=== PATIENT | male | born 1985 ===

== ENCOUNTER 2022-01-18 13:36 | Emergency (ER) | payer BC ==
[~2022-01-18] VITALS: Ht 172 cm; Wt 81.0 kg
[2022-01-18 13:45] VITALS: BP 149/86
--- NOTE | 2022-01-18 14:27 | ED Integumentary General ---
General Chief Complaint: Skin/Wound Problems Stated Complaint: FEVER/CRAMPS/GENITAL LUMP Nursing Triage Note: ARRIVED VIA AMB TO ROOM 07 WITH COMPLAINTS OF FEVER, ABD CRAMPS, AND A RECTAL ABSCESS X3 DAYS Source: patient Exam Limitations: no limitations History of Present Illness Date Seen by Provider: Jan 18, 2022 Time Seen by Provider: 13:45 Initial Comments 36-year-old male with no significant past medical history coming in due to per ineal pain, swelling, and fever. Started around 3 days ago. Has never had anything like this happen before. Has never had any procedures for abscess drainage in his perineal region. Took ibuprofen earlier today which helped somewhat. He says he has had some darker stools, but no bright red blood. Does not take any blood thinners. Has been taking ibuprofen for the past 3 days, prior to that has not taken a lot of NSAIDs. No history of liver disease. Is otherwise denying any chest pain, shortness of breath, nausea, vomiting, diarrhea, weakness, numbness, or any other concerns. Allergies and Home Medications Allergies Coded Allergies: No Known Drug Allergies (Unverified , 01/18/22) Patient Home Medication List Home Medication List Reviewed: Yes Ciprofloxacin HCl (Ciprofloxacin HCl) 500 Mg Tablet, 500 MG PO BID Prescribed by: YASEMIN LECHUGA on 01/18/22 161 Ibuprofen (Ibuprofen) 800 Mg Tablet, 800 MG PO Q8H PRN for PAIN Prescribed by: YASEMIN LECHUGA on 01/18/22 161 Metronidazole (Metronidazole) 500 Mg Tablet, 500 MG PO Q8H Prescribed by: YASEMIN LECHUGA on 01/18/22 1619 Review of Systems Review of Systems Constitutional: fever EENTM: No blurred vision Respiratory: No cough Cardiovascular: No chest pain Gastrointestinal: No abdominal pain Genitourinary: other (perineum pain) Musculoskeletal: no symptoms reported Skin: other (abscess) Psychiatric/Neurological: No Symptoms Reported Endocrine: No Symptoms Reported Hematologic/Lymphatic: No Symptoms Reported All Other Systems Reviewed Negative Unless Noted: Yes Past Ensqrdo-Dtqcad-Nvlwqj Hx Patient Social History Smoking Status: Current Everyday Smoker Substance use?: No Alcohol Use?: No Immunizations Up To Date COVID19 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 Past Medical History Surgeries: No Physical Exam Vital Signs Vital Signs - First Documented 01/18/22 13:45 Temp 36.6 Pulse 95 Resp 16 B/P (MAP) 149/86 (107) Pulse Ox 98 O2 Delivery Room Air Capillary Refill : Less Than 3 Seconds General Appearance: WD/WN, no apparent distress HEENT: PERRL/EOMI, normal ENT inspection, pharynx normal Neck: non-tender, full range of motion, supple, normal inspection Cardiovascular: regular rate, rhythm, no edema, no murmur Respiratory: chest non-tender, lungs clear, normal breath sounds, no respiratory distress, no accessory muscle use Gastrointestinal: normal bowel sounds, non tender, soft; No distended, No guarding, No rebound Back: normal inspection, no CVA tenderness Extremities: normal range of motion, non-tender, normal inspection, no pedal edema, no calf tenderness Neurologic/Psychiatric: no motor/sensory deficits, alert, normal mood/affect Skin: normal color, warm/dry, other (area of fluctuance with abscess in the mid perineum, tender to touch, mild erythema surrounding it, no pain on digital rectal exam, brown stool without melena) Lymphatic: no adenopathy Procedures/Interventions I&D : Site: perineum Blade Size: 11 I & D Procedure: betadine prep Progress Lidocaine with epinephrine used for anesthesia after it was cleaned. Single stab incision used with moderate amount of purulent drainage. Patient tolerated procedure well Progress/Results/Core Measures Results/Orders Lab Results Laboratory Tests Test 01/18/22 14:35 Range/Units White Blood Count 9.7 4.3-11.0 10^3/uL Red Blood Count 5.05 4.30-5.52 10^6/uL Hemoglobin 15.5 13.3-17.7 g/dL Hematocrit 45 40-54 % Mean Corpuscular Volume 89 80-99 fL Mean Corpuscular Hemoglobin 31 25-34 pg Mean Corpuscular Hemoglobin Concent 35 32-36 g/dL Red Cell Distribution Width 13.3 10.0-14.5 % Platelet Count 153 130-400 10^3/uL Mean Platelet Volume 10.5 9.0-12.2 fL Immature Granulocyte % (Auto) 0 % Neutrophils (%) (Auto) 75 42-75 % Lymphocytes (%) (Auto) 16 12-44 % Monocytes (%) (Auto) 9 0-12 % Eosinophils (%) (Auto) 0 0-10 % Basophils (%) (Auto) 0 0-10 % Neutrophils # (Auto) 7.2 1.8-7.8 10^3/uL Lymphocytes # (Auto) 1.6 1.0-4.0 10^3/uL Monocytes # (Auto) 0.8 0.0-1.0 10^3/uL Eosinophils # (Auto) 0.0 0.0-0.3 10^3/uL Basophils # (Auto) 0.0 0.0-0.1 10^3/uL Immature Granulocyte # (Auto) 0.0 0.0-0.1 10^3/uL Prothrombin Time 13.9 12.2-14.7 SEC INR Comment 1.0 0.8-1.4 Activated Partial Thromboplast Time 32 24-35 SEC Sodium Level 138 135-145 MMOL/L Potassium Level 3.6 3.6-5.0 MMOL/L Chloride Level 107 98-107 MMOL/L Carbon Dioxide Level 20 L 21-32 MMOL/L Anion Gap 11 5-14 MMOL/L Blood Urea Nitrogen 11 7-18 MG/DL Creatinine 0.98 0.60-1.30 MG/DL Estimat Glomerular Filtration Rate 101 BUN/Creatinine Ratio 11 Glucose Level 105 70-105 MG/DL Calcium Level 8.6 8.5-10.1 MG/DL Corrected Calcium 8.8 8.5-10.1 MG/DL Total Bilirubin 0.4 0.1-1.0 MG/DL Aspartate Amino Transf (AST/SGOT) 28 5-34 U/L Alanine Aminotransferase (ALT/SGPT) 19 0-55 U/L Alkaline Phosphatase 72 40-136 U/L C-Reactive Protein High Sensitivity 5.23 H 0.00-0.50 MG/DL Total Protein 6.3 L 6.4-8.2 GM/DL Albumin 3.8 3.2-4.5 GM/DL My Orders Orders - YASEMIN LECHUGA MD Cbc With Automated Diff (01/18/22 14:19) Comprehensive Metabolic Panel (01/18/22 14:19) Hs C Reactive Protein (01/18/22 14:19) Protime With Inr (01/18/22 14:19) Partial Thromboplastin Time (01/18/22 14:19) Ct Abdomen/Pelvis W (01/18/22 14:19) Ed Iv/Invasive Line Start (01/18/22 14:19) Ketorolac Injection (Toradol Injection) (01/18/22 14:45) Iohexol Injection (Omnipaque 350 Mg/Ml 1 (01/18/22 14:45) Ns (Ivpb) (Sodium Chloride 0.9% Ivpb Bag (01/18/22 14:45) Ciprofloxacin Tablet (Cipro Tablet) (01/18/22 16:21) Metronidazole Tablet (Flagyl Tablet) (01/18/22 16:21) Medications Given in ED Current Medications Medications Dose Ordered Sig/Jamee Route Start Time Stop Time Status Last Admin Dose Admin Iohexol 100 ml ONCE ONCE IV 01/18/22 14:45 01/18/22 14:46 DC 01/18/22 15:13 100 ML Ketorolac Tromethamine 15 mg ONCE ONCE IVP 01/18/22 14:45 01/18/22 14:46 DC 01/18/22 14:44 15 MG Sodium Chloride 100 ml ONCE ONCE IV 01/18/22 14:45 01/18/22 14:46 DC 01/18/22 15:13 80 ML Vital Signs/I&O 01/18/22 13:45 Temp 36.6 Pulse 95 Resp 16 B/P (MAP) 149/86 (107) Pulse Ox 98 O2 Delivery Room Air Blood Pressure Mean: 107 Progress Progress Note : Progress Note 36-year-old male with above history coming in due to an abscess in his perineum region. ABCs were intact and vitals were stable on presentation. Physical exam with the after mentioned abscess in the area. No rectal pain on digital rectal exam. He also is not having any bloody stools despite mentioning having dark stools previously. Hemoglobin is normal, labs otherwise unremarkable. CT with no anorectal abscess seen. He does have signs of colitis. We will treat him with antibiotics due to this. I will have him follow-up with one of our surgeons since there is a possibility for recurrence. He was then discharged home in stable condition with strict return precautions. Diagnostic Imaging Diagonstic Imaging: CT Plain Films/CT/US/NM/MRI: abdomen Comments [facility]. [place], [place] NAME: BRYAN RODRÍGUEZ JR [facility] REC#: [id number] PT STATUS: REG ER : 1985 PHYSICIAN: YASEMIN LECHUGA MD ADMIT DATE: 01/18/22/ER Draft Date of Exam:01/18/22 CT ABDOMEN/PELVIS W PROCEDURE: CT abdomen and pelvis with contrast. TECHNIQUE: Multiple contiguous axial images were obtained through the abdomen and pelvis after administration of intravenous contrast. Auto Exposure Controls were utilized during the CT exam to meet ALARA standards for radiation dose reduction. All CT scans use one or more of the following dose optimizing techniques: automated exposure control, MA and/or KvP adjustment based on patient size and exam type or iterative reconstruction. INDICATION: 36-year-old male, fever, abdominal cramps, rectal abscess x 3 days. CORRELATION STUDY: None. FINDINGS: LOWER THORAX: Clear. LIVER: Tiny low attenuating region fatty dome favors probable cyst. GALLBLADDER: Present and unremarkable. No bile duct dilatation. SPLEEN: Calcified granulomas, otherwise unremarkable. PANCREAS: Unremarkable. ADRENAL GLANDS: Unremarkable. KIDNEYS: Normal configuration. No calcification or obstruction. ABDOMINAL AORTA: Unremarkable, nonaneurysmal. GASTROINTESTINAL TRACT: Stomach is mildly distended with fluid and retained gastric contents. No small bowel obstruction. There is a small amount of fluid within the proximal colon. No evidence for appendicitis. The low midline pelvis has additional very small gas containing tubular structure adjacent to small bowel. This may be continuation of a very long appendix. There are a few scattered colonic diverticuli present. There is segmental wall thickening of a large portion of the sigmoid colon. There is noted asymmetric thickening and enhancement at the level of the rectum. This is fairly thin and long. Definitive encapsulated fluid collection is not suggested. No abnormal soft tissue gas. URINARY BLADDER: Relatively decompressed. REPRODUCTIVE: Unremarkable. OSSEOUS STRUCTURES: Rather prominent disc space narrowing at the L4-L5 level with endplate sclerosis and osteophyte. This results in moderate to marked foraminal narrowing at the L4-L5 level. Nonacute pars articularis defect at the L5 level. OTHER: None. IMPRESSION: 1. Prominent segmental wall thickening of the sigmoid colon consistent with likely segmental colitis. A few colonic diverticula are present. 2. There is asymmetric soft tissue thickening and inflammation suggested at the level of the perineum and perirectal region. A definitive discrete loculated drainable abscess, however, is not suggested on this study. Dictated on workstation # [id number] Dict: 01/18/22 [id number] Trans: 01/18/[address] [facility] [id number] Interpreted by: OPAL CORONADO DO Electronically signed by: Departure Impression Primary Impression: Perianal abscess Additional Impression: Colitis Disposition: 01 HOME, SELF-CARE Condition: Stable Departure-Patient Inst. Decision time for Depature: 16:16 Referrals: SAM HAMILTON DO NO,LOCAL PHYSICIAN (PCP) Primary Care Physician Patient Instructions: Abscess Incision and Drainage (DC), Colitis Add. Discharge Instructions: Lo vieron en el departamento de emergencias por un absceso en la regin de la denia. Abrimos esto y lo vaciamos. Comenzaremos con 2 antibiticos que shikha jluis la prxima semana. Tambin comenzamos con ibuprofeno recetado que puede shikha cada 6 horas jluis la prxima semana para el dolor. [place] un dora con ashley de Epsom para remojar el malina y deje que contine drenando. Sospecho que continuarn drenando pus y algo de myrna jluis los prximos beckman. Ken un seguimiento con el Dr. Hamilton, que es cirujano, dentro del prximo mes para asegurarse de que desaparezca por completo, estas cosas pueden volver. You were seen in the emergency department for an abscess in your groin region. We opened this up and drained it. We will start you on 2 antibiotics which she will take for the next week. We also started you on prescription ibuprofen which you can take every 6 hours for the next week for pain. Take a bath with Epsom salt to soak the area and allow it to continue to drain. I suspect they will continue to drain pus as well as some blood for the next couple days. Follow-up with Dr. Hamilton who is a surgeon within the next month or so to be sure it completely goes away, these things can come back. Scripts Ibuprofen (Ibuprofen) 800 Mg Tablet 800 MG PO Q8H PRN for PAIN for 7 Days, #28 TAB 0 Refills Prov: YASEMIN LECHUGA MD 01/18/22 Metronidazole (Metronidazole) 500 Mg Tablet 500 MG PO Q8H for 7 Days, #21 TAB Prov: YASEMIN LECHUGA MD 01/18/22 Ciprofloxacin HCl (Ciprofloxacin HCl) 500 Mg Tablet 500 MG PO BID for 7 Days, #14 TAB Prov: YASEMIN LECHUGA MD 01/18/22 Work/School Note: Work Release Form Date Seen in the Emergency Department: Jan 18, 2022 Return to Work: Jan 20, 2022 Restrictions: Return-No Fever (24hrs) YASEMIN LECHUGA MD Jan 18, 2022 14:27
[2022-01-18] MEDS ORDERED: KETOROLAC 15 MG/ML VIAL IVP ONE (14:30)
[2022-01-18 14:39] LABS: BASOPHILS % (AUTO) 0 % (0-10); EOSINOPHILS % (AUTO) 0 % (0-10); HEMATOCRIT 45 % (40-54); HEMOGLOBIN 15.5 g/dL (13.3-17.7); LYMPHOCYTES # (AUTO) 1.6 10^3/uL (1.0-4.0); LYMPHOCYTES % (AUTO) 16 % (12-44); MEAN CORPUSCULAR HEMOGLOBIN 31 pg (25-34); MEAN CORPUSCULAR HGB CONC 35 g/dL (32-36); MEAN CORPUSCULAR VOLUME 89 fL (80-99); MEAN PLATELET VOLUME 10.5 fL (9.0-12.2); MONOCYTES # (AUTO) 0.8 10^3/uL (0.0-1.0); MONOCYTES % (AUTO) 9 % (0-12); NEUTROPHILS # (AUTO) 7.2 10^3/uL (1.8-7.8); NEUTROPHILS % (AUTO) 75 % (42-75); PLATELET COUNT 153 10^3/uL (130-400); WHITE BLOOD COUNT 9.7 10^3/uL (4.3-11.0)
[2022-01-18] MEDS ORDERED: NS 100 ML (IVPB) BAG IV ONE (14:45)
[2022-01-18] MEDS ORDERED: IOHEXOL 350 MG/ML 100 ML (OMNIPAQUE 350) VIAL IV ONE (14:45)
[2022-01-18] MEDS ORDERED: KETOROLAC 30 MG/ML VIAL IVP ONE (14:45)
[2022-01-18 14:52] LABS: PROTHROMBIN TIME PATIENT 13.9 SEC (12.2-14.7)
[2022-01-18 15:00] LABS: ALBUMIN 3.8 GM/DL (3.2-4.5); BILIRUBIN,TOTAL 0.4 MG/DL (0.1-1.0); CALCIUM 8.6 MG/DL (8.5-10.1); CREATININE SERUM 0.98 MG/DL (0.60-1.30); POTASSIUM 3.6 MMOL/L (3.6-5.0); TOTAL PROTEIN 6.3 GM/DL (6.4-8.2)
--- NOTE | 2022-01-18 15:39 | Diagnostic Imaging Report ---
PROCEDURE: CT abdomen and pelvis with contrast. TECHNIQUE: Multiple contiguous axial images were obtained through the abdomen and pelvis after administration of intravenous contrast. Auto Exposure Controls were utilized during the CT exam to meet ALARA standards for radiation dose reduction. All CT scans use one or more of the following dose optimizing techniques: automated exposure control, MA and/or KvP adjustment based on patient size and exam type or iterative reconstruction. INDICATION: 36-year-old male, fever, abdominal cramps, rectal abscess x 3 days. CORRELATION STUDY: None. FINDINGS: LOWER THORAX: Clear. LIVER: Tiny low attenuating region fatty dome favors probable cyst. GALLBLADDER: Present and unremarkable. No bile duct dilatation. SPLEEN: Calcified granulomas, otherwise unremarkable. PANCREAS: Unremarkable. ADRENAL GLANDS: Unremarkable. KIDNEYS: Normal configuration. No calcification or obstruction. ABDOMINAL AORTA: Unremarkable, nonaneurysmal. GASTROINTESTINAL TRACT: Stomach is mildly distended with fluid and retained gastric contents. No small bowel obstruction. There is a small amount of fluid within the proximal colon. No evidence for appendicitis. The low midline pelvis has additional very small gas containing tubular structure adjacent to small bowel. This may be continuation of a very long appendix. There are a few scattered colonic diverticuli present. There is segmental wall thickening of a large portion of the sigmoid colon. There is noted asymmetric thickening and enhancement at the level of the rectum. This is fairly thin and long. Definitive encapsulated fluid collection is not suggested. No abnormal soft tissue gas. URINARY BLADDER: Relatively decompressed. REPRODUCTIVE: Unremarkable. OSSEOUS STRUCTURES: Rather prominent disc space narrowing at the L4-L5 level with endplate sclerosis and osteophyte. This results in moderate to marked foraminal narrowing at the L4-L5 level. Nonacute pars articularis defect at the L5 level. OTHER: None. IMPRESSION: 1. Prominent segmental wall thickening of the sigmoid colon consistent with likely segmental colitis. A few colonic diverticula are present. 2. There is asymmetric soft tissue thickening and inflammation suggested at the level of the perineum and perirectal region. A definitive discrete loculated drainable abscess, however, is not suggested on this study. Dictated by: Dictated on workstation # [id number]
[2022-01-18] MEDS ORDERED: CIPR500T5 PO (16:19)
[2022-01-18] MEDS ORDERED: IBUP-1780 PO (16:19)
[2022-01-18] MEDS ORDERED: METR-145 PO (16:19)
[2022-01-18] MEDS ORDERED: CIPROFLOXACIN 500 MG (CIPRO) TABLET PO STA (16:21)
[2022-01-18] MEDS ORDERED: metroNIDAZOLE 500 MG (FLAGYL) TAB PO STA (16:21)
== END 2022-01-18 16:32 | disposition home or self-care (01) ==
LOC: ER 13:39
DX: L02.215 Cutaneous abscess of perineum (principal); K52.9 Noninfective gastroenteritis and colitis, unspecified
CPT/HCPCS: 36415; 46050; 74177; 80053; 85025; 85610; 85730; 86141

== ENCOUNTER → 2023-07-22 | Outpatient (CLI) | payer BC ==
[~2023-07-22] MED LIST: CIPR500T5 PO; IBUP-1780 PO; METR-145 PO
--- NOTE | 2023-07-22 14:58 | Diagnostic Imaging Report ---
INDICATION: Headache and hypertension. Vision changes. Dizziness. TECHNIQUE: Routine non contrast-enhanced axial images were obtained from the skull base to the vertex. Auto Exposure Controls were utilized during the CT exam to meet ALARA standards for radiation dose reduction COMPARISON: None. FINDINGS: The ventricles and cortical sulci are normal in size and contour. There is no midline shift or mass-effect. No acute intra-axial hemorrhage is seen. There are no abnormal areas of increased or decreased density to suggest acute hemorrhage or edema. No extra-axial masses or collections are present. The bony calvarium is intact. The visualized paranasal sinuses show scattered mucosal thickening and debris with multiple air-fluid levels. The mastoid air cells are clear. IMPRESSION: 1. No acute intracranial abnormality. No CT evidence of mass, acute infarct or intracranial hemorrhage. 2. Paranasal sinus disease. Dictated by: Dictated on workstation # [id number]
--- NOTE | 2023-07-22 18:21 | Diagnostic Imaging Report ---
PROCEDURE: CT chest and abdomen without contrast. TECHNIQUE: Axial images were obtained from the thoracic inlet through the iliac crest without the administration of intravenous contrast. Auto Exposure Controls were utilized during the CT exam to meet ALARA standards for radiation dose reduction. INDICATION: Chest and abdominal pain. Hypertension. COMPARISON: CT of the abdomen and pelvis dated 01/18/2022. FINDINGS: CT CHEST: Cardiomediastinal structures show normal heart size. There is no large pericardial effusion. No pathologically enlarged or morphologically abnormal adenopathy is seen within the mediastinum, vanda, nor axillae. Lungs are clear. There is no focal consolidation, large effusion, nor pneumothorax. 4 mm micronodule is identified associated with the anterior margins of the minor fissure on the right (image 47, series 3). There is no prior CT chest for comparison. No other suspicious pulmonary nodules or masses are seen. Osseous structures show no acute abnormalities. No lytic or blastic bony lesions are seen. CT ABDOMEN: Included portions of the colon show scattered diverticula. There is, however, no CT evidence of acute diverticulitis. Normal appendix is present. Included small bowel loops are nondilated. The kidneys, adrenal glands, spleen, pancreas, and liver have an unremarkable noncontrast CT appearance. There is no loculated fluid collection, free fluid, or free air within the abdomen. No abnormal mesenteric or retroperitoneal adenopathy is seen. Osseous structures show no acute abnormalities. IMPRESSION: 1. No acute abnormality is seen within the abdomen or pelvis. 2. Colonic diverticulosis, but included portions of the colon show no CT evidence of acute diverticulitis. 3. 4 mm micronodule associated with the anterior margins of the minor fissure on the right. This may be on the basis of intrafissural lymph node. If patient is in a high-risk category, one-year follow-up could be performed to ensure stability. Dictated by: Dictated on workstation # [id number]
== END ==
LOC: RAD 14:10
PROVIDERS: ATTEND Registered Nurse Critical Care Medicine
DX: J32.9 Chronic sinusitis, unspecified (principal); I10 Essential (primary) hypertension; K57.30 Diverticulosis of large intestine without perforation or abscess without bleeding; R91.1 Solitary pulmonary nodule
CPT/HCPCS: 70450; 71250; 74150

== ENCOUNTER → 2023-08-04 | Outpatient (CLI) | payer BC | LOC: CANPRECLI → CARD 10:18 | PROVIDERS: ATTEND Registered Nurse Critical Care Medicine | DX: I11.9 Hypertensive heart disease without heart failure (principal); G44.89 Other headache syndrome; R09.81 Nasal congestion; R04.0 Epistaxis | CPT/HCPCS: 93306 ==